=== PATIENT | female | born 1940 | race Asian ===

== ENCOUNTER 2020-09-25 15:04 | Inpatient (IN) | payer MEDICARE, MEDICAID ==
[~2020-09-25] VITALS: Ht 160 cm; Wt 79.3 kg
[~2020-09-25 15:04] MED LIST: AMLO-211 PO; ATOR-2 PO; CLON0.1T2 SL; METO25TA35 PO; NEBI2.5T2 PO; beta blocker
--- NOTE | 2020-09-25 16:16 | NUR ---
Patient presents to ER c/o dry cough since Wednesday which makes her SOB. Body aches and fever since yesterday. Patient is in NAD. Respirations even and unlabored. No cough noted at this time. Self admin 1gm Tylenol at 1400.
--- NOTE | 2020-09-25 16:59 | NUR ---
pt resting in gurney, denies any needs. vss, nadn, call light w/in reach.
[2020-09-25] MEDS ORDERED: SODIUM CHLORIDE 0.9%, 500ML IVBOLUS ONE (17:30)
--- NOTE | 2020-09-25 17:44 | NUR ---
PT INSTRUCTED OF NEED TO COLLECT UA, PROVIDED W/ CUP AND WIPE AND INSTRUCTION ON HOW TO PERFORM CLEAN CATCH. PT WALKED TO BATHROOM AND BACK W/O INCIDENT, STEADY GAIT. SAMPLE COLLECTED AND TUBED TO LAB. BEN, CALL LIGHT W/IN REACH.
[2020-09-25 17:53] LABS: BASOPHILS % (AUTO) 1 % (0-1); EOSINOPHILS % (AUTO) 1 % (1-7); LYMPHOCYTES % (AUTO) 9 % (22-44); MEAN CORPUSCULAR HEMOGLOBIN 31.1 pg (27.0-34.8); MEAN CORPUSCULAR HGB CONC 33.5 g/dL (32.4-35.8); MEAN PLATELET VOLUME 7.2 fL (7.4-10.4); MONOCYTES % (AUTO) 10 % (2-9); NEUTROPHILS % (AUTO) 80 % (42-75); PLATELET COUNT 221 x10^3/uL (130-400); RED BLOOD COUNT 4.35 x10^6/uL (3.82-5.3); RED CELL DISTRIBUTION WIDTH 13.5 % (9.6-15.2)
[2020-09-25 18:04] LABS: ALANINE AMINOTRANSFERASE 28 U/L (12-78); ANION GAP 7 mmol/L (5-15); CALCIUM 9.2 mg/dL (8.5-10.1); CHLORIDE 106 mmol/L (98-107)
[2020-09-25 18:07] LABS: ALKALINE PHOSPHATASE 70 U/L (45-117); CREATININE 0.93 mg/dL (0.55-1.02); TOTAL PROTEIN 8.1 g/dL (6.4-8.2)
[2020-09-25 18:21] LABS: MICROSCOPIC NOT IND
--- NOTE | 2020-09-25 18:28 | NUR ---
FIRST CONTACT: PATIENT'S DAUGHTER: BEAR [phone]
--- NOTE | 2020-09-25 18:29 | NUR ---
TASK RN: ABX 03/16 STARTED AFTER CONFIRMATION THAT BLOOD CULTURES X2 DRAWN
[2020-09-25] MEDS ORDERED: CEFTRIAXONE 1,000 MG in DEXTROSE 5% 50 ML IVPB ONE (18:30)
[2020-09-25] MEDS ORDERED: AZITHROMYCIN 500 MG in SODIUM CHLORIDE 0.9% 250 ML IV ONE (18:30)
[2020-09-25] MEDS ORDERED: AMLO-211 PO (18:38)
[2020-09-25] MEDS ORDERED: ACETAMINOPHEN 500 MG TABLET ONE (18:40)
--- NOTE | 2020-09-25 18:47 | NUR ---
task rn: medicated with tylenol for mild fever of 99.3/muscle aches. abx 1/2 complete, 2/2 started room air pox now 88%. placed on 2l nc. erp made aware
--- NOTE | 2020-09-25 18:53 | NUR ---
SBAR REPORT GIVEN TO DUTCH CALDERON.
[2020-09-25] MEDS ORDERED: ACETAMINOPHEN 500 MG TABLET PO ONE (19:00)
--- NOTE | 2020-09-25 19:10 | NUR ---
PT. RESTING ON GURNEY WITH NO DISTRESS NOTED. DENIES NEEDS AT THIS TIME. ALL MONITORS IN PLACE. ALL SAFETY MEASURES OSBERVED. CALL LIGHT IN REACH.
--- NOTE | 2020-09-25 19:22 | NUR ---
FIRST ATTEMPT TO CALL REPORT TO FLOOR.
[2020-09-25 20:00] VITALS: BP 127/74
[2020-09-25] MEDS ORDERED: ONDANSETRON 2MG/ML, 2ML IVPush PRN (21:30)
[2020-09-25] MEDS ORDERED: LABETALOL 5MG/ML, 20ML IVPush PRN (21:30)
[2020-09-25] MEDS: AMLODIPINE 5 MG TABLET PO SCH (21:56)
[2020-09-25] MEDS: ATORVASTATIN 20 MG TABLET PO SCH (21:56)
[2020-09-25] MEDS: METOPROLOL TARTRATE 25 MG TAB PO SCH (21:56)
[2020-09-25] MEDS: ENOXAPARIN 40 MG/0.4 ML SQ SCH (21:56)
[2020-09-25] MEDS: ACETAMINOPHEN 325 MG TABLET PO PRN (22:03)
[2020-09-26 01:19] VITALS: BP 134/73
[2020-09-26 06:07] LABS: BASOPHILS % (AUTO) 1 % (0-1); EOSINOPHILS % (AUTO) 1 % (1-7); LYMPHOCYTES % (AUTO) 8 % (22-44); MEAN CORPUSCULAR HEMOGLOBIN 31.1 pg (27.0-34.8); MEAN CORPUSCULAR HGB CONC 33.5 g/dL (32.4-35.8); MEAN PLATELET VOLUME 7.6 fL (7.4-10.4); MONOCYTES % (AUTO) 8 % (2-9); NEUTROPHILS % (AUTO) 83 % (42-75); PLATELET COUNT 215 x10^3/uL (130-400); RED BLOOD COUNT 3.94 x10^6/uL (3.82-5.3); RED CELL DISTRIBUTION WIDTH 13.4 % (9.6-15.2)
[2020-09-26 06:19] LABS: ANION GAP 6 mmol/L (5-15); CALCIUM 8.5 mg/dL (8.5-10.1); CHLORIDE 108 mmol/L (98-107)
[2020-09-26 06:20] LABS: CREATININE 0.85 mg/dL (0.55-1.02)
[2020-09-26 06:37] VITALS: BP 109/62
[2020-09-26] MEDS ORDERED: POTASSIUM CHLORIDE 20 MEQ TAB.ER.PRT PO ONE (07:30)
[2020-09-26] MEDS: ACETAMINOPHEN 325 MG TABLET PO PRN ×2 (08:38→17:50)
[2020-09-26] MEDS: AMLODIPINE 5 MG TABLET PO SCH ×2 (08:38→21:03)
[2020-09-26] MEDS: METOPROLOL TARTRATE 25 MG TAB PO SCH ×2 (08:38→21:03)
[2020-09-26] MEDS ORDERED: OMNIPAQUE 350 MG/ML, 100ML BOTTLE ONE (13:37)
[2020-09-26] MEDS: CHOLECALCIFEROL 400 UNITS TABLET PO SCH (17:42)
[2020-09-26] MEDS: ASCORBIC ACID 500 MG TABLET PO SCH (17:42)
[2020-09-26] MEDS ORDERED: AZITHROMYCIN 500 MG in SODIUM CHLORIDE 0.9% 250 ML IV SCH (18:00)
[2020-09-26 20:03] VITALS: BP 122/65
[2020-09-26] MEDS: ATORVASTATIN 20 MG TABLET PO SCH (21:03)
[2020-09-26] MEDS: ENOXAPARIN 40 MG/0.4 ML SQ SCH (21:07)
[2020-09-26] MEDS ORDERED: CEFTRIAXONE 1,000 MG in DEXTROSE 5% 50 ML IVPB SCH (21:30)
[2020-09-26] MEDS ORDERED: CEFTRIAXONE 2,000 MG in DEXTROSE 5% 50 ML IVPB SCH (21:30)
[2020-09-27 00:30] VITALS: BP 126/73
[2020-09-27 07:21] VITALS: BP 124/71
[2020-09-27] MEDS: AMLODIPINE 5 MG TABLET PO SCH ×2 (08:13→21:34)
[2020-09-27] MEDS: ASCORBIC ACID 500 MG TABLET PO SCH ×2 (08:13→16:46)
[2020-09-27] MEDS: CHOLECALCIFEROL 400 UNITS TABLET PO SCH (08:13)
[2020-09-27] MEDS: ZINC SULFATE 220 MG CAPSULE PO SCH (08:13)
[2020-09-27] MEDS: METOPROLOL TARTRATE 25 MG TAB PO SCH ×2 (08:14→21:34)
[2020-09-27] MEDS: ACETAMINOPHEN 325 MG TABLET PO PRN (08:14)
[2020-09-27] MEDS: DOXYCYCLINE 100MG TABLET PO SCH ×2 (08:52→21:34)
[2020-09-27] MEDS: POTASSIUM CHLORIDE 20 MEQ TAB.ER.PRT PO SCH ×2 (08:52→16:46)
[2020-09-27] MEDS: AMPICILLIN/SULBACTAM 3 GM in SODIUM CHLORIDE 0.9% 100 ML IV SCH ×3 (08:52→20:32)
[2020-09-27 13:36] VITALS: BP 127/64
[2020-09-27 19:30] VITALS: BP 143/74
[2020-09-27] MEDS: ATORVASTATIN 20 MG TABLET PO SCH (21:34)
[2020-09-27] MEDS: ENOXAPARIN 40 MG/0.4 ML SQ SCH (21:34)
[2020-09-27] MEDS: GUAIFENESIN ER 600 MG TABLET PO SCH (21:34)
[2020-09-28] MEDS: AMPICILLIN/SULBACTAM 3 GM in SODIUM CHLORIDE 0.9% 100 ML IV SCH ×4 (02:36→20:53)
[2020-09-28 02:56] VITALS: BP 116/68
[2020-09-28 05:21] LABS: BASOPHILS % (AUTO) 1 % (0-1); EOSINOPHILS % (AUTO) 5 % (1-7); LYMPHOCYTES % (AUTO) 21 % (22-44); MEAN CORPUSCULAR HGB CONC 34.3 g/dL (32.4-35.8); MEAN PLATELET VOLUME 7.5 fL (7.4-10.4); MONOCYTES % (AUTO) 10 % (2-9); NEUTROPHILS % (AUTO) 64 % (42-75); PLATELET COUNT 200 x10^3/uL (130-400); RED BLOOD COUNT 3.87 x10^6/uL (3.82-5.3); RED CELL DISTRIBUTION WIDTH 13.4 % (9.6-15.2)
[2020-09-28 05:32] LABS: ALBUMIN 3.1 g/dL (3.4-5.0); ANION GAP 4 mmol/L (5-15); CALCIUM 8.4 mg/dL (8.5-10.1); CHLORIDE 111 mmol/L (98-107)
[2020-09-28 05:35] LABS: ALANINE AMINOTRANSFERASE 18 U/L (12-78); ALKALINE PHOSPHATASE 55 U/L (45-117); BILIRUBIN,TOTAL 0.8 mg/dL (0.2-1.0); CREATININE 0.71 mg/dL (0.55-1.02); TOTAL PROTEIN 7.3 g/dL (6.4-8.2)
[2020-09-28 07:32] VITALS: BP 130/76
[2020-09-28] MEDS: CHOLECALCIFEROL 400 UNITS TABLET PO SCH (08:42)
[2020-09-28] MEDS: METOPROLOL TARTRATE 25 MG TAB PO SCH ×2 (08:43→20:53)
[2020-09-28] MEDS: ZINC SULFATE 220 MG CAPSULE PO SCH (08:43)
[2020-09-28] MEDS: GUAIFENESIN ER 600 MG TABLET PO SCH ×2 (08:43→20:53)
[2020-09-28] MEDS: ACETAMINOPHEN 325 MG TABLET PO PRN (08:43)
[2020-09-28] MEDS: ASCORBIC ACID 500 MG TABLET PO SCH ×2 (08:43→17:08)
[2020-09-28] MEDS: AMLODIPINE 5 MG TABLET PO SCH ×2 (08:43→20:53)
[2020-09-28] MEDS: DOXYCYCLINE 100MG TABLET PO SCH ×2 (08:43→20:53)
[2020-09-28 13:35] VITALS: BP 112/68
[2020-09-28] MEDS: ATORVASTATIN 20 MG TABLET PO SCH (20:53)
[2020-09-28] MEDS: ENOXAPARIN 40 MG/0.4 ML SQ SCH (20:59)
[2020-09-28 21:01] VITALS: BP 121/68
[2020-09-29 02:15] VITALS: BP 119/68
[2020-09-29] MEDS: AMPICILLIN/SULBACTAM 3 GM in SODIUM CHLORIDE 0.9% 100 ML IV SCH ×4 (02:43→21:02)
[2020-09-29 06:29] VITALS: BP 134/72
[2020-09-29] MEDS: GUAIFENESIN ER 600 MG TABLET PO SCH ×2 (08:27→21:02)
[2020-09-29] MEDS: DOXYCYCLINE 100MG TABLET PO SCH ×2 (08:27→21:03)
[2020-09-29] MEDS: METOPROLOL TARTRATE 25 MG TAB PO SCH ×2 (08:27→21:02)
[2020-09-29] MEDS: CHOLECALCIFEROL 400 UNITS TABLET PO SCH (08:27)
[2020-09-29] MEDS: AMLODIPINE 5 MG TABLET PO SCH ×2 (08:27→21:03)
[2020-09-29] MEDS: ASCORBIC ACID 500 MG TABLET PO SCH ×2 (08:29→16:10)
[2020-09-29] MEDS: ZINC SULFATE 220 MG CAPSULE PO SCH (08:29)
[2020-09-29 13:49] VITALS: BP 126/72
[2020-09-29] MEDS ORDERED: OMNIPAQUE 350 MG/ML, 75ML BOTTLE ONE (15:30)
[2020-09-29] MEDS: FLUTICASONE NASAL SPRAY 16GM NAS SCH (16:09)
[2020-09-29] MEDS: CETIRIZINE 10 MG TABLET PO SCH (16:10)
[2020-09-29 19:54] VITALS: BP 123/74
[2020-09-29] MEDS: ATORVASTATIN 20 MG TABLET PO SCH (21:02)
[2020-09-29] MEDS: ENOXAPARIN 40 MG/0.4 ML SQ SCH (21:04)
[2020-09-30 00:28] VITALS: BP 124/72
[2020-09-30] MEDS: AMPICILLIN/SULBACTAM 3 GM in SODIUM CHLORIDE 0.9% 100 ML IV SCH ×3 (02:27→14:18)
[2020-09-30 07:48] VITALS: BP 129/78
[2020-09-30] MEDS: ASCORBIC ACID 500 MG TABLET PO SCH (08:08)
[2020-09-30] MEDS: METOPROLOL TARTRATE 25 MG TAB PO SCH (08:09)
[2020-09-30] MEDS: DOXYCYCLINE 100MG TABLET PO SCH (08:09)
[2020-09-30] MEDS: CHOLECALCIFEROL 400 UNITS TABLET PO SCH (08:09)
[2020-09-30] MEDS: CETIRIZINE 10 MG TABLET PO SCH (08:09)
[2020-09-30] MEDS: GUAIFENESIN ER 600 MG TABLET PO SCH (08:09)
[2020-09-30] MEDS: ZINC SULFATE 220 MG CAPSULE PO SCH (08:09)
[2020-09-30] MEDS: AMLODIPINE 5 MG TABLET PO SCH (08:09)
[2020-09-30] MEDS: FLUTICASONE NASAL SPRAY 16GM NAS SCH (08:10)
[2020-09-30] MEDS ORDERED: FLUTICASONE NASAL SPRAY 16GM NAS SCH (09:00)
[2020-09-30] MEDS ORDERED: CETIRIZINE 10 MG TABLET PO SCH (09:00)
[2020-09-30] MEDS: ACETAMINOPHEN 325 MG TABLET PO PRN (13:19)
[2020-09-30 13:23] VITALS: BP 133/79
[2020-09-30] MEDS ORDERED: GUAI600T31 PO (14:52)
[2020-09-30] MEDS ORDERED: AMOX1TAB64 PO (14:52)
[2020-09-30] MEDS ORDERED: DOXY100T PO (14:52)
== END 2020-09-30 16:55 | disposition home or self-care (01) | DRG 871 ==
LOC: ED 18:50 → EDIP 18:53 → 3N 19:56
PROVIDERS: ADMIT Family Medicine; ATTEND Internal Medicine
DX: A41.9 Sepsis, unspecified organism (principal); J96.01 Acute respiratory failure with hypoxia; J18.9 Pneumonia, unspecified organism; E78.5 Hyperlipidemia, unspecified; E87.6 Hypokalemia; I10 Essential (primary) hypertension; J45.909 Unspecified asthma, uncomplicated; Z90.12 Acquired absence of left breast and nipple; Z80.0 Family history of malignant neoplasm of digestive organs; Z82.49 Family history of ischemic heart disease and other diseases of the circulatory system; Z82.3 Family history of stroke; R73.9 Hyperglycemia, unspecified
CPT/HCPCS: 36415; 71045; 71260; 80048; 80053; 81003; 83036; 83605; 83735; 84145; 85025; 86480; 87040; 87081; 87486; 87581; 87633; 87798; 96365; G0378; J0295; J0456; J0696; J1650; Q9967; J7040; J7050